=== PATIENT | female | born 1975 | race African-American/Black ===

== ENCOUNTER 2025-07-16 14:04 | Outpatient (AMB) | payer OTHER, SELFPAY ==
--- NOTE | 2025-07-16 14:06 | MHC.OFFVIS ---
Vital Signs 07/16/25 14:08 Height 5 ft 3 in Weight 134 lb BMI 23.7 BP 134/87 Blood Pressure Location Rt brachial Position Sitting Respiration 16 Pulse 104 H Pulse Source Pulse Oximeter Pulse Oximetry (%) 97 Oxygen Delivery Method Room Air Intake Visit Reasons: LEFT KNEE PAIN Supervisor Data Processing Required: No Accompanied by: Self / Same As Patient Allergies No Known Allergies Allergy (Verified 07/16/25 14:11) HPI Comments Details: The patient is a 50 year old female presenting for an initial evaluation for chronic left knee pain. The pain began at the end of February when the patient woke up with it. The patient reports pain in both knees, but the left is more bothersome. The pain is rated as 10/10 throughout the day and 3-4/10 in the morning, and is described as shooting, stabbing, sharp, sore, hurting, and aching, causing tiredness with periods of instability. It is exacerbated by daily activities, walking, climbing stairs, movements, and cold weather, and it affects sleep daily. The patient attempted physical therapy but had to stop due to pain and financial concerns over copays. The patient was seen by Orthopedics, who performed a fluid aspiration and gave a cortisone injection the week before last, which provided relief for only a day or two. Synovial fluid analysis showed no evidence of infection, gout or pseudogout. The patient has an MRI of the left knee scheduled for this upcoming Wednesday. Past medical history is significant for a thoracic aortic aneurysm and a bicuspid aortic valve, for which the patient underwent mechanical heart valve replacement in April 2021 and is on Lovenox and Coumadin. The patient has a permanent colostomy following an abscess requiring a colectomy and a failed ileostomy reversal attempt due to incontinence. Other history includes chronic autoimmune hepatitis, herpes simplex virus, hypertension, depression, anxiety disorder, and history of breast cancer. The patient also reports numbness in the ankles and toes and has a referral to see a Neurologist. - Location: Bilateral knees, with the left being worse than the right; left knee swelling - Onset: End of February; the patient woke up with the pain. - Quality: Shooting, stabbing, sharp, sore, hurting, and aching. - Severity: 10/10 throughout the day and 3-4/10 in the morning. - Exacerbating Factors: Daily activities, walking, climbing stairs, general movements, and cold weather. - Relieving Factors: A cortisone injection provided relief for approximately one to two days. - Functional Impact: The pain affects sleep daily, walking and daily functioning. - Affect: The patient reports feeling tired due to the pain and expressed frustration about being in constant pain for months. - Analgesia: The patient uses Tylenol, but has been taking it daily. Avoids NSAIDs due to anticoagulation therapy. - Adverse Effects: The patient is concerned that taking too much Tylenol causes the INR to go up. - Activities of Daily Living: Pain interferes with sleep daily and is worsened by walking and climbing stairs. - Aberrant Drug-Related Behaviors: None reported. [facility] Medical History (Updated 07/16/25 @ 22:50 by DERIC Villagran) Rectovaginal fistula Depression HTN (hypertension) HSV (herpes simplex virus) anogenital infection Chronic autoimmune hepatitis Aortic valve disorder Anemia Anxiety Multiple joint pain Effusion, left knee Chronic pain of left knee Review of Systems Const Details: - Musculoskeletal: Reports bilateral knee pain, left worse than right, with swelling and periods of instability. Denies locking or popping sensations. - Neurological: Reports intermittent numbness in the ankles and toes. All systems reviewed & are unremarkable except as noted in HPI and below Physical Exam Vital Signs: Last Vital Signs Pulse 104 H 07/16/25 14:08 Resp 16 07/16/25 14:08 BP 134/87 07/16/25 14:08 Pulse Ox 97 07/16/25 14:08 Oxygen Delivery Method Room Air 07/16/25 14:08 BMI result Body Mass Index 23.7 General: Appears afebrile. Alert and oriented. Mood and affect appropriate. Follows and participates in conversation appropriately. Respiratory effort is unlabored. No cough. Able to transition from sit to stand unassisted. Ambulates with bilaterally normal heel strike and toe off. Extrem General: Yes capillary refill normal, Yes no pedal edema, Yes no calf tenderness, No clubbing and No cyanosis Right lower extremity: knee Details: normal to inspection, tenderness Location: of the medial joint line and of the lateral joint line, normal ROM and crepitus; no swelling, no ecchymosis, no deformity and no unusual warmth Left lower extremity: knee (Limited ROM due to pain.) Details: tenderness Location: of the medial joint line and of the lateral joint line, swelling Location: of the patella and crepitus; no ecchymosis, no deformity and no unusual warmth Results Reviewed Results Reviewed: No imaging reports are available for review today. Pending left knee MRI on 07/18/25. Assessment & Plan Assessment & Plan (1) Chronic pain of left knee: Code(s): M25.562 - Pain in left knee; G89.29 - Other chronic pain Category: Medical (2) Right knee pain: Code(s): M25.561 - Pain in right knee Category: Medical (3) Osteoarthritis of knees, bilateral: Code(s): M17.0 - Bilateral primary osteoarthritis of knee Category: Medical Plan For the chronic left knee pain, the plan is to await the results of the upcoming MRI and her follow up with Orthopedics. If the MRI is consistent with osteoarthritis and no acute surgical pathology is found, the patient would be a candidate for interventional pain procedures. Two procedures were discussed: peripheral nerve stimulation and radiofrequency ablation. Candidacy for either would require a positive response to a diagnostic nerve block, which would be scheduled if appropriate after MRI review. Informational pamphlets were provided to patient and visual [employer] PNS model was utilized for education purposes. I have informed patient that we do not offer chronic opioid program entrance at this time, this will be deferred to her PCP. All questions and concerns have been answered and patient agreed with the treatment plan. Follow up for MRI results and sooner as needed. Patient was informed and verbally consented to the use of an ambient scribe for clinic note documentation during this visit. Coding Level of Care Code New Pt Level 4 (18587) Diagnoses Chronic pain of left knee M25.562; G89.29 Right knee pain M25.561 Osteoarthritis of knees, bilateral M17.0
[2025-07-16 14:08] VITALS: BP 134/87; PULSE 104; RESP 16; O2SAT 97; BMI 23.7
--- OUTSIDE RECORDS SUMMARY | 2025-07-16 17:30 | XMS_ITS | Data Portability ---
Author Organization [place] - [facility], [facility] Address [address] [place] [address] Care Team Providers Care Pneudraulic Systems Mechanic Name Role Phone ELIOT RUBIO Primary Care Provider ADRIENNE HOLCOMB Lease Examiner MARY JANE CAMPOS Cardiac Surgeon YIFAN RIVAS Wood Box Maker Assessment Encounter Date Assessment Date Assessment LastModified by Organization Details LastModified Time 06/22/2021 06/22/2021 Overview/History : 46 y/o F with hx of HTN, Breast CA s/p lumpectomy and breast reconstruction, Aortic Stenosis s/p mechanical aortic valve replacement on 05/12/2021 with complication of Cardic Tamponade requiring drainage and admission x 3 weeks at [facility], Genetic Biscupid valve, Thoracic Aortic Aneurysm s/p repair, 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 The patient reports that her nausea has improved today and she has been tolerating PO food and drink as normal. Patient also admits to some redness of her chest incision of the surgery with some associated warmth to palpation, but no purulent drainage, fevers, chills, abdominal pain, leg swelling. Exam: AAOx3 young female, non-toxic appearing, in no acute distress, ambulatory Head: NC/AT EENT: (+) moist mucous membranes, (-) erythema/bulging of TMs, (-) EAC drainage/edema, (-) tonsillar erythema/edema/ex udates Chest: (+) mild diffuse chest tenderness, Heart: RRR with no murmurs, rubs or gallops Lungs: CTABL with no ronchi, wheezes or rales present Abd: Soft, non-tender, non-distended, (+) colostomy with watery stool Back: (-) CVA tenderness Extremities: Freely moving with no edema, 2+ distal pulses Skin: (+) mildly erythematous midline chest incision with no surrounding erythema, warmth to palpation, fluctuance, purulent drainage DDx considered, but not limited to: ACS versus Abscess versus PE versus Aortic Dissection versus Hepatitis versus Cholecystitis versus Cholangiitis versus Pancreatitis Work up/Results: Patient is non-toxic appearing in no acute distress. Patient is afebrile to 97.4. HR is 91. BP is 122/70. RR is 20. O2sat is 98% on RA. Patient appears well and is ambulatory, but she does have some mild diffuse chest wall tenderness and there is mild erythema of her midline chest incision, but no warmth to palpation, fluctuance, or purulent drainage present. Given patient's vast PMH of recent aortic mechanical valve placement, thoracic aortic aneurysm with repair, and hx of multiple abscesses present, patient would benefit from immediate escalation as she warrants a full cardiac work-up, an ECHO, and/or possibly a CT scan of her chest. Patient was made aware that any of the differential diagnoses could be life threatening and lead to cardiac arrest and possibly even . Knowing these risks, the patient refused the ER. Will assess with EKG, CXR, POC Chem 8, and send out CBC, Hepatic Function panel, and Lipase. EKG is Sinus rhythm at 80 bpm with a RBBB present (-) ischemic changes as read by Georges Miles PA-C and Dr. Mtz - confirmed that patient has a hx of a RBBB with cardiac surgeon's office. POC Chem 8 shows mild hypokalemia and anemia, but otherwise no significant electrolyte abnormalities. glu - 81 BUN - 6 crea - 0.8 Na - 143 K - 3.3 cL - 108 TCO2 - 22 angap - 18 ica - 1.21 HCT - 32 Hb - 10.9 CXR ordered to r/o pneumonia, effusion, tamponade. CBC, Hepatic function panel, and lipase ordered and sent to [facility]. Plan/Discussion: Lengthy discussion was had with patient regarding her symptoms and status. I advised the patient that she is an extremely high risk patient given her vast comorbidities and recent procedure of mechanical aortic valve replacement with chest pain (although appears chronic in nature) and an episode of nausea and vomiting, that patient warrants immediate escalation to the ER. Patient was made aware of all risks of not going to the ER which include possible cardiac arrest and even . Patient still refuses the ER. I discussed my recommendation of transferring the patient to the Emergency Department with the patient due to concerns regarding the patient s current medical illness and need for a higher level of care. The patient was informed that refusal could lead to, but was not limited to, , permanent disability, or severe pain. Time was given to allow the opportunity to ask questions and consider their options. After the discussion, the patient decided against transfer to the Emergency Department and requested I treat the patient to the best of my ability given the limited resources available. The patient has the mental capacity to make this decision and demonstrated the ability to describe the concerns that I discussed. Advised patient that she is mildly hypokalemic to 3.3 as well as mildly anemic. Advised that DH cannot explore the true source of her chest pain in the home which is why she warrants full and immediate escalation. Patient still refuses. will be in contact with all other lab and imaging results as soon as they are received. Patient has an appointment scheduled with her PCP tomorrow. Upon completion of my assessment, I attempted to contact the patient's surgeon, Dr. Campos and spoke to the on-call provider who was made aware of patient's case and status. She stated that the patient's Right bundle branch block on patient's EKG is known. She spoke to patient herself and advised that the patient call tomorrow to schedule an appointment with Dr. Campos's office for follow up. I discussed this conversation with patient's who was made aware of all the details. He agrees with plan to follow up with PCP, GI, and cardiac surgeon as soon as possible. Advised patient while on scene to monitor for any worsening chest pain, shortness of breath, persistent nausea, vomiting, abdominal pain, weakness, fatigue, lethargy, leg swelling, and/or jaundice and if any of these are to occur then to call 911 immediately and go to the the ER. Patient and verbalized their understanding of the diagnosis. Patient and verbalized their understanding of the diagnosis and need for follow up with PCP, as well as ER/DH return precautions. In order to obtain further information and compare any laboratory results/values, I have accessed old patient records. This information was pertinent in my medical decision making today. Proper Personal Protective Equipment (PPE), including gloves, eye protection, N95 mask, gown, and shoe covers were donned and doffed appropriately and all equipment cleaned using approved technique with germicidal disposable wipes prior to and after care of this patient according to [facility]'s infection prevention protocols. Not available 06/22/2021 21:09:47 Plan of Treatment Reminders Order Date Submit Date Provider Last Modified By Organization Details Last Modified Time Details Appointments None recorded. Lab BMP + ionized calcium, serum or plasma 2020 [facility], [address] [place] [address], [address], 15:09:54 CBC w/ auto diff 2020 [facility] (Centralized Electronic Ordering - All Locations), Patient Can Go To The Location Of Their Choice, [id number] 17:18:48 hepatic function panel, serum 2020 [facility] (Centralized Electronic Ordering - All Locations), Patient Can Go To The Location Of Their Choice, [id number] 18:04:36 lipase, serum or plasma 2020 [facility] (Centralized Electronic Ordering - All Locations), Patient Can Go To The Location Of Their Choice, [id number] 18:04:43 Referral None recorded. Procedures None recorded. Surgeries None recorded. Imaging XR, chest, 2 view - chest pain, nausea and vomiting x 1 day 2020 [facility] ([facility] [address] [place] [address], [place], [address], 11:51:21 Medication Orders None recorded. Patient TargetsNo targets recorded. Patient Instructions Encounter Date Encounter Id Patient Instructions Last Modified By Organization Details Last Modified Time 06/22/2021 [id number] Thank you for yo ur visit with [facility] today. We cannot always find the exact cause of your symptoms during your initial visit. Please follow up with your primary care provider or specialist within 24-48 hours to be rechecked or seek medical attention if your symptoms do not go away or get worse. If you develop any new or worsening symptoms and need after hours care, please go to nearest ER and/or call 911. If you have additional concerns or develop a change in your condition between 8am-10pm, please call [facility] at [phone] to help navigate your care. Not available 06/22/2021 15:33:30 Reason for Referral None Reported. Results Created Date Observation Date Name Description Value Unit Range Abnormal Flag Note LastModifiedBy Organization Detail LastModifiedTime 06/22/2006/22/2021 COMPL ETE CBC WITH DIFF WBC 3.4 K/mm3 (4.0-1 1.0) low Not Available [facility] (Centralized Electronic Ordering - All Locations) Patient Can Go To The Location Of Their Choice, [id number] 06/22/2021 17:18:48 06/22/2006/22/2021 COMPL ETE CBC WITH DIFF RBC 3.24 M/mm3 (4.20- 5.40) low Not Available [facility] (Centralized Electronic Ordering - All Locations) Patient Can Go To The Location Of Their Choice, [id number] 06/22/2021 17:18:48 06/22/2006/22/2021 COMPL ETE CBC WITH DIFF HGB 10.2 gm/dL (11.7- 15.5) low Not Available [facility] (Centralized Electronic Ordering - All Locations) Patient Can Go To The Location Of Their Choice, [id number] 06/22/2021 17:18:48 06/22/2006/22/2021 COMPL ETE CBC WITH DIFF HCT 31.2 % (35.7- 45.8) low Not Available [facility] (Centralized Electronic Ordering - All Locations) Patient Can Go To The Location Of Their Choice, [id number] 06/22/2021 17:18:48 06/22/2006/22/2021 COMPL ETE CBC WITH DIFF MCV 96.3 fL (80.0- 100.0) Not Available [facility] (Centralized Electronic Ordering - All Locations) Patient Can Go To The Location Of Their Choice, 06/22/2021 17:18:48 06/22/2006/22/2021 COMPL ETE CBC WITH DIFF MCH 31.5 pg (27.0- 34.0) Not Available [facility] (Centralized Electronic Ordering - All Locations) Patient Can Go To The Location Of Their Choice, 06/22/2021 17:18:48 06/22/2006/22/2021 COMPL ETE CBC WITH DIFF MCHC 32.7 g/dL (33.0- 37.0) low Not Available [facility] (Centralized Electronic Ordering - All Locations) Patient Can Go To The Location Of Their Choice, 06/22/2021 17:18:48 06/22/2006/22/2021 COMPL ETE CBC WITH DIFF plt 414 K/mm3 (150-4 60) Not Available [facility] (Centralized Electronic Ordering - All Locations) Patient Can Go To The Location Of Their Choice, 06/22/2021 17:18:48 06/22/2006/22/2021 COMPL ETE CBC WITH DIFF RDW-SD 46.0 fL (<47.0 ) Not Available [facility] (Centralized Electronic Ordering - All Locations) Patient Can Go To The Location Of Their Choice, 06/22/2021 17:18:48 06/22/2006/22/2021 COMPL ETE CBC WITH DIFF MPV 10.3 fL (9.4-1 2.4) Not Available [facility] (Centralized Electronic Ordering - All Locations) Patient Can Go To The Location Of Their Choice, 06/22/2021 17:18:48 06/22/2006/22/2021 COMPL ETE CBC WITH DIFF automated NRBC 0.0 #/100 _WBC' s Not Available [facility] (Centralized Electronic Ordering - All Locations) Patient Can Go To The Location Of Their Choice, 06/22/2021 17:18:48 06/22/2006/22/2021 COMPL ETE CBC WITH DIFF abs. NRBC 0.0 K/mm3 Not Available [facility] (Centralized Electronic Ordering - All Locations) Patient Can Go To The Location Of Their Choice, [id number] 06/22/2021 17:18:48 06/22/2006/22/2021 COMPL ETE CBC WITH DIFF neut # 2.4 K/mm3 (1.3-7 .0) Not Available [facility] (Centralized Electronic Ordering - All Locations) Patient Can Go To The Location Of Their Choice, 06/22/2021 17:18:48 06/22/2006/22/2021 COMPL ETE CBC WITH DIFF lymph # 0.6 K/mm3 (0.8-3 .1) low Not Available [facility] (Centralized Electronic Ordering - All Locations) Patient Can Go To The Location Of Their Choice, 06/22/2021 17:18:48 06/22/2006/22/2021 COMPL ETE CBC WITH DIFF mono# 0.2 K/mm3 (0.4-0 .9) low Not Available [facility] (Centralized Electronic Ordering - All Locations) Patient Can Go To The Location Of Their Choice, [id number] 06/22/2021 17:18:48 06/22/2006/22/2021 COMPL ETE CBC WITH DIFF eo # 0.2 K/mm3 (0.0-0 .4) Not Available [facility] (Centralized Electronic Ordering - All Locations) Patient Can Go To The Location Of Their Choice, 06/22/2021 17:18:48 06/22/2006/22/2021 COMPL ETE CBC WITH DIFF baso # 0.0 K/mm3 (0.0-0 .1) Not Available [facility] (Centralized Electronic Ordering - All Locations) Patient Can Go To The Location Of Their Choice, 06/22/2021 17:18:48 06/22/2006/22/2021 COMPL ETE CBC WITH DIFF abs. imm gran 0.0 K/mm3 Not Available [facility] (Centralized [facility] Ordering - All Locations) Patient Can Go To The Location Of Their Choice, 06/22/2021 17:18:48 06/22/2006/22/2021 COMPL ETE CBC WITH DIFF neut 68.8 % (44-76 ) Not Available [facility] (Centralized Electronic Ordering - All Locations) Patient Can Go To The Location Of Their Choice, [id number] 06/22/2021 17:18:48 06/22/20 21 06/22/2021 COMPL ETE CBC WITH DIFF lymph 18.2 % (15-43 ) Not Available [facility] (Centralized Electronic Ordering - All Locations) Patient Can Go To The Location Of Their Choice, [facility] 06/22/2021 17:18:48 06/22/20 21 06/22/2021 COMPL ETE CBC WITH DIFF monocyte 6.2 % (4.5-1 0.5) Not Available [facility] (Centralized Electronic Ordering - All Locations) Patient Can Go To The Location Of Their Choice, [facility] 06/22/2021 17:18:48 06/22/20 21 06/22/2021 COMPL ETE CBC WITH DIFF eo 5.3 % (0-6) Not Available [facility] (Centralized Electronic Ordering - All Locations) Patient Can Go To The Location Of Their Choice, [facility] 06/22/2021 17:18:48 06/22/20 21 06/22/2021 COMPL ETE CBC WITH DIFF baso 1.2 % (0-2) Not Available [facility] (Centralized Electronic Ordering - All Locations) Patient Can Go To The Location Of Their Choice, [facility] 06/22/2021 17:18:48 06/22/2006/22/2021 COMPL ETE CBC WITH DIFF imm gran 0.3 % Not Available [facility] (Centralized Electronic Ordering - All Locations) Patient Can Go To The Location Of Their Choice, [facility] 06/22/2021 17:18:48 06/22/2006/22/2021 HEPAT IC FUNCT ION PANEL bilirubin,to richar 0.3 mg/dL (0-1.2 ) Not Available [facility] (Centralized Electronic Ordering - All Locations) Patient Can Go To The Location Of Their Choice, [facility] 06/22/2021 18:04:36 06/22/2006/22/2021 HEPAT IC FUNCT ION PANEL bilirubin, direct 0.2 mg/dL (0-0.3 ) Not Available [facility] (Centralized Electronic Ordering - All Locations) Patient Can Go To The Location Of Their Choice, [facility] 06/22/2021 18:04:36 06/22/2006/22/2021 HEPAT IC FUNCT ION PANEL indirect bilirubin 0.1 mg/dL (0.0-0 .7) Not Available [facility] (Centralized Electronic Ordering - All Locations) Patient Can Go To The Location Of Their Choice, 06/22/2021 18:04:36 06/22/2006/22/2021 HEPAT IC FUNCT ION PANEL albumin 4.4 gm/dL (3.4-4 .8) Not Available [facility] (Centralized Electronic Ordering - All Locations) Patient Can Go To The Location Of Their Choice, 06/22/2021 18:04:36 06/22/2006/22/2021 HEPAT IC FUNCT ION PANEL AST 43 U/L (0-32) high Not Available [facility] (Centralized Electronic Ordering - All Locations) Patient Can Go To The Location Of Their Choice, 06/22/2021 18:04:36 06/22/2006/22/2021 HEPAT IC FUNCT ION PANEL ALT 27 U/L (0-33) Not Available [facility] (Centralized Electronic Ordering - All Locations) Patient Can Go To The Location Of Their Choice, 06/22/2021 18:04:36 06/22/2006/22/2021 HEPAT IC FUNCT ION PANEL alk phos 287 U/L (35-10 4) high Not Available [facility] (Centralized Electronic Ordering - All Locations) Patient Can Go To The Location Of Their Choice, 06/22/2021 18:04:36 06/22/2006/22/2021 HEPAT IC FUNCT ION PANEL total protein 6.9 gm/dL (6.2-8 .2) Not Available [facility] (Centralized Electronic Ordering - All Locations) Patient Can Go To The Location Of Their Choice, 06/22/2021 18:04:36 06/22/2006/22/2021 LIPAS E lipase 53 U/L (13-60 ) Not Available [facility] (Centralized Electronic Ordering - All Locations) Patient Can Go To The Location Of Their Choice, 06/22/2021 18:04:43 06/22/2006/22/2021 BMP + IONIZ ED CALCI UM, SERUM OR PLASM A glu 81 mg/dL 70-105 Not Available [facility] [address] [place], [address], 06/22/2021 15:09:54 06/22/20 21 06/22/2021 BMP + IONIZ ED CALCI UM, SERUM OR PLASM A BUN 6 mg/dL 8-26 Not Available [address], [address], 06/22/2021 15:09:54 06/22/20 21 06/22/2021 BMP + IONIZ ED CALCI UM, SERUM OR PLASM A crea 0.8 mg/dL 0.6-1. 3 Not Available [address], [address], 06/22/2021 15:09:54 06/22/20 21 06/22/2021 BMP + IONIZ ED CALCI UM, SERUM OR PLASM A Na 143 mmol/ L 138-14 6 Not Available [address], [address], 06/22/2021 15:09:54 06/22/20 21 06/22/2021 BMP + IONIZ ED CALCI UM, SERUM OR PLASM A K 3.3 mmol/ L 3.5-4. 9 Not Available [address], [address], 06/22/2021 15:09:54 06/22/20 21 06/22/2021 BMP + IONIZ ED CALCI UM, SERUM OR PLASM A cL 108 mmol/ L 98-109 Not Available [address], [address], 06/22/2021 15:09:54 06/22/20 21 06/22/2021 BMP + IONIZ ED CALCI UM, SERUM OR PLASM A TCO2 22 mmol/ L 24-29 Not Available [address], [address], 06/22/2021 15:09:54 06/22/20 21 06/22/2021 BMP + IONIZ ED CALCI UM, SERUM OR PLASM A angap 18 mmol/ L 10-20 Not Available [facility] [address] [place], [address], 06/22/2021 15:09:54 06/22/20 21 06/22/2021 BMP + IONIZ ED CALCI UM, SERUM OR PLASM A ica 1.21 mmol/ L 1.12-1 .32 Not Available [facility] [address] [place], [address], 06/22/2021 15:09:54 06/22/20 21 06/22/2021 BMP + IONIZ ED CALCI UM, SERUM OR PLASM A HCT 32 %pcv 38-51 Not Available [facility] [address] [place], [address], 06/22/2021 15:09:54 06/22/20 21 06/22/2021 BMP + IONIZ ED CALCI UM, SERUM OR PLASM A Hb 10.9 g/dL 12-17 Not Available [facility] [address] [place], [address], 06/22/2021 15:09:54 06/22/20 21 elect fracisco diogr am No observ ation record ed. Not Available 2020 21:02:17 Result Notes None recorded. Procedures Surgical History Date Name Laterality Status Provider Name and Address Organization Details Recorded Time Venipuncture - STEVE Wyatt [address], [place], [address], [place] [facility] 06/22/2021 15:31:40 ECG Interpretation - STEVE Bhakta [address] [place], [address], [place] [facility] 06/22/2021 21:00:36 colostomy completed STEVE IVERSON [address], [place], [address], [place] [facility] 06/22/2021 14:25:48 ileostomy operation completed STEVE IVERSON [address], [place], [address], [place] [facility] 06/22/2021 14:25:55 transcatheter aortic valve replacement completed STEVE IVERSON [address], [place], [address], [place] [facility] 06/22/2021 14:26:10 hysterectomy completed STEVE IVERSON [address], [place], [address], [place] [facility] 06/22/2021 14:26:19 lumpectomy of breast completed STEVE IVERSON [address], [place], [address], [place] [facility] 06/22/2021 14:26:27 Imaging Results None recorded. Procedure Notes None recorded. Medical Equipment None Reported. Allergies No known drug allergies Medications Name Sig Start Date Stop Date Status Note LastModified by Organization Details LastModified Time acidophilus 175 mg capsule 06/22 completed Not Available Not Available Not Available carvedilol 6.25 mg tablet TAKE 1 TABLET BY MOUTH TWO TIMES A DAY active Not Available Not Available No t Available carvedilol 12.5 mg tablet 06/22 completed Not Available Not Available Not Available amiodarone 200 mg tablet TAKE 1 TABLET BY MOUTH EVERY DAY active Not Available Not Available No t Available azathioprin e 50 mg tablet TAKE 1 TABLET DAILY active Not Available Not Available No t Available oxycodone-a cetaminophe n 5 mg-325 mg tablet 06/22 completed Not Available Not Available Not Available citalopram 20 mg tablet TAKE 1 TABLET DAILY active Not Available Not Available No t Available ursodiol 300 mg capsule TAKE 1 CAPSULE 3 TIMES DAILY active Not Available Not Available No t Available hydrochloro thiazide 25 mg tablet 06/22 completed Not Available Not Available Not Available gabapentin 100 mg capsule 06/22 completed Not Available Not Available Not Available warfarin 1 mg tablet TAKE 2 TABLETS BY MOUTH TONIGHT THEN ADVISED BY THE [facility] active Not Available Not Available No t Available budesonide DR - ER 3 mg capsule,luh craig,extend ed release 06/22 completed Not Available Not Available Not Available colchicine 0.6 mg tablet TAKE 1 TABLET BY MOUTH EVERY DAY active Not Available Not Available No t Available Hibiclens 4 % topical liquid 06/22 completed Not Available Not Available Not Available amoxicillin 875 mg-potassiu m clavulanate 125 mg tablet 06/22 completed Not Available Not Available Not Available enoxaparin 100 mg/mL subcutaneou s syringe INJECT 1 ML SUBCUTANE OUSLY EVERY 24 HOURS 06/22 completed Not Available Not Available Not Available Vitals Date Recorded Heart rate Oxygen saturation Respiratory rate Body temperature Systolic And Diastolic Provider Name and Address Organization Details Last Updated DateTime 91 /min 98 % 20 /min 97.4 [degF] 122/70 mm[Hg] Not Available [facility] 14:26:52 Social History None recorded. Functional Status Question Answer Note LastModified by Organizat ion Details LastModified Time Do you use any illicit or recreational drugs? No Information not available 06/22/2021 Do you or have you ever used any other forms of tobacco or nicotine? No Information not available 06/22/2021 What is your level of alcohol consumption? None Information not available 06/22/2021 Mental Status None recorded. Family History Nothing Reported. Medical History Condition Response Diabetes N Coronary Artery Disease N CHF N Parkinson's Disease N Cancer Y Dementia N Stroke N Hypothyroidism N Depression N COPD N Asthma N High Cholesterol N Rheumatoid Arthritis N Pulmonary Embolism N Hypertension Y A-fib N Osteoporosis N Kidney Disease N Gynecological HistoryNo gynecological history recorded. Obstetrics History GPAL:G 0 P 0 0 0 0 Past Encounters Encounter ID Performer Location Encounter Start Date Encounter Closed Date Diagnosis/Indication Diagnosis SNOMED-CT Code Diagnosis ICD10 Code Diagnosis IMO Codes Diagnosis Note [id number] STEVE IVERSON [facility] - [address] [place] [address] 06/22/2021 14:15:03 06/26/2021 19:35:09 Nausea and vomiting 22702270 R11.2 History of mechanical aortic valve replacement [id number] 46395 Z95.2 History of repair of thoracic aortic aneurysm [id number] 57282 Z86.79 Colostomy present 158036 009 Z93.3 Chest pain 05969329 R07. 9 Health Concerns Section Related Observation LastModified by Organization Detai ls LastModified Time None Recorded Concern Status LastModified by Organization Details LastModified Time None Recorded Advance Directives Directive None Recorded Payers Insurance Date Sequence Insurance Name Policy Number Policy Villar Covered Member ID Villar Member ID Guarantor Name 06/21/2021 1 *SELF PAY* Randa Zepeda [id number] Randa Zepeda 06/22/2021 1 [facility] [id number] 1 Randa Zepeda [id number] Randa Zepeda 06/22/2021 1 [facility] [id number] 1 Randa Zepeda [id number] Randa Zepeda Notes Date Note Type Note Provider Name and Address Organization Details Recorded Time 06/22/2021 text/html 46 y/o F with hx of HTN, Breast CA s/p lumpectomy and breast reconstruction, Aortic Stenosis s/p mechanical aortic valve replacement on 05/12/2021 with complication of Cardic Tamponade requiring drainage and admission x 3 weeks at [facility], Genetic Biscupid valve, Thoracic Aortic Aneurysm s/p repair, 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 The patient reports that her nausea has improved today and she has been tolerating PO food and drink as normal. Patient also admits to some redness of her chest incision of the surgery with some associated warmth to palpation, but no purulent drainage, fevers, chills, abdominal pain, leg swelling. STEVE IVERSON [address], [place], [address], [place] - [facility] 06/22/2021 21:09:58 OBGyn Episode No OBEpisode recorded.
== END 2025-07-16 14:38 | disposition home or self-care (01) ==
LOC: HO.PMC 14:05
PROVIDERS: PCP Internal Medicine; Visit Provider Nurse Practitioner Family
DX: M25.562 Pain in left knee (principal); G89.29 Other chronic pain; M25.561 Pain in right knee; M17.0 Bilateral primary osteoarthritis of knee
CPT/HCPCS: 99204